=== PATIENT | male | born 1945 | race Caucasian/White ===

== ENCOUNTER 2024-04-12 14:39 | Outpatient (CLI) | payer MEDICARE, OTHER ==
[~2024-04-12 14:39] MED LIST: NO HOME MEDS
[2024-04-12 16:18] LABS: CHOL/HDL RATIO 3.8 (0.00-4.99); CHOLESTEROL 161 MG/DL (0-200); FREE T4 (FREE THYROXINE) 0.92 NG/DL (0.73-1.40); HDL CHOLESTEROL 42 MG/DL (35-60); LDL CHOLESTEROL 107 MG/DL (50-100); THYROID STIMULATING HORMONE 1.62 ulU/ml (0.34-4.50); TRIGLYCERIDES 83 MG/DL (20-135)
[2024-04-12 16:19] LABS: HEMOGLOBIN A1C 5.5 % (4.5-6.2)
[2024-04-14 11:58] LABS: % FREE PSA 26.6 % (.); PROSTATE SPECIFIC AG, SERUM 3.2 ng/mL (0.0-4.0); PSA, FREE 0.85 ng/mL
== END 2024-04-12 23:59 | disposition home or self-care (01) ==
LOC: LAB 14:39
PROVIDERS: ATTEND Family Medicine
DX: Z13.1 Encounter for screening for diabetes mellitus (principal); Z00.00 Encounter for general adult medical examination without abnormal findings; E78.2 Mixed hyperlipidemia; R35.1 Nocturia
CPT/HCPCS: 36415; 80061; 83036; 84153; 84154; 84439; 84443

== ENCOUNTER 2024-04-24 10:11 | Day surgery (SDC) | payer MEDICARE, OTHER ==
[2024-04-12 16:03] LABS: BASOPHILS # (AUTO) 0.1 X10'3 (0-0.2); BASOPHILS % (AUTO) 1.3 % (0-1); EOSINOPHILS # (AUTO) 0.2 X10'3 (0-0.9); EOSINOPHILS % (AUTO) 2.6 % (0-6); LYMPHOCYTES # (AUTO) 1.6 X10'3 (1.1-4.8); LYMPHOCYTES % (AUTO) 23.2 % (21-51); MEAN CORPUSCULAR HEMOGLOBIN 31.7 PG (27.0-31.0); MEAN CORPUSCULAR VOLUME 93.4 FL (78-98); MEAN PLATELET VOLUME 8.1 FL (7.4-10.4); MONOCYTES # (AUTO) 0.7 X10'3 (0-0.9); MONOCYTES % (AUTO) 10.3 % (2-12); NEUTROPHILS # (AUTO) 4.3 X10'3 (1.8-7.7); NEUTROPHILS % (AUTO) 62.6 % (42-75); PRE OP HEMOGLOBIN 15.6 g/dL (14.0-17.9); PRE OP PLATELET COUNT 212 X10'3 (140-440); PRE OP WHITE BLOOD COUNT 6.9 10'3 (4.8-10.8); RED BLOOD COUNT 4.92 X10'6 (4.70-6.10)
[2024-04-12 16:43] LABS: ALBUMIN/GLOBULIN RATIO 1.1 (1.1-1.5); ALKALINE PHOSPHATASE 83 IU/L (46-116); BLOOD UREA NITROGEN 14 MG/DL (7-18); BUN/CREATININE RATIO 14.6 (10.0-20.0); CALCIUM 8.6 MG/DL (8.5-10.1); CHLORIDE 105 MMOL/L (99-107); CREATININE 0.96 MG/DL (0.60-1.10); PRE OP ALT 32 U/L (30-65); PRE OP ANION GAP 11 (8-16); PRE OP AST 27 U/L (10-37); PRE OP BILIRUB, TOTAL 0.8 MG/DL (0.0-1.0); PRE OP GLUCOSE 85 MG/DL (70-104); PRE OP POTASSIUM 3.8 MMOL/L (3.4-5.1); PRE OP SODIUM 137 MMOL/L (135-145); TOTAL CARBON DIOXIDE 21.2 MMOL/L (24-32); TOTAL PROTEIN 7.6 G/DL (6.4-8.2); eGFR 76 ML/MIN
[~2024-04-24] VITALS: Ht 177.8 cm; Wt 81.7 kg
[2024-04-24] VITALS (8 sets, daily range): BP systolic 120–161; BP diastolic 70–101; PULSE 53–61; RESP 9–16; TEMP 97.1; O2SAT 94–98
[2024-04-24] MEDS: cefazolin 2gm/D5W 100mL 100 ML IV ONE (05:30)
[~2024-04-24 10:11] MED LIST changes: +LIDOcaine 2% (20mg/ml) 5ml vial ONE; +ringers solution, lacted 1,000 ML IV SCH
[2024-04-24] MEDS: famotidine 20mg tablet PO ONE (10:40)
[2024-04-24] MEDS ORDERED: labetalol 20mg/4ml (5mg/ml) syringe IV PRN (10:50)
[2024-04-24] MEDS ORDERED: ringers solution, lacted 1,000 ML IV SCH (10:50)
[2024-04-24] MEDS ORDERED: labetalol 5mg/ml 20ml inj. IV PRN (10:50)
[2024-04-24] MEDS ORDERED: morphine 2 MG/ML inj. syringe IV PRN (10:50)
[2024-04-24] MEDS ORDERED: ondansetron/PF 4mg/2ml inj IV PRN (10:50)
[2024-04-24] MEDS ORDERED: morphine 4 MG/ML inj SYRINge IV PRN (10:50)
[2024-04-24] MEDS ORDERED: BUPIVAcaine/PF 2.5mg/ml (0.25%) 10ml vial ONE (11:16)
[2024-04-24] MEDS ORDERED: fentaNYL/PF 50MCG/1 ML 2ML syringe ONE (11:47)
[2024-04-24] MEDS ORDERED: midazolam 1 mg/ML 2ml injection ONE (11:47)
[2024-04-24] MEDS ORDERED: propofol 10mg/ml 20ml vial IV ONE (11:51)
[2024-04-24] MEDS ORDERED: LIDOcaine 0.5% (5mg/ml) 50ml vial ONE (12:00)
[2024-04-24] MEDS ORDERED: ketorolac trometh. 30mg/ml inj. ONE (12:01)
[2024-04-24] MEDS: BUPIVAcaine/PF 2.5mg/ml (0.25%) 10ml vial ONE (12:08)
== END 2024-04-24 13:43 | disposition home or self-care (01) ==
LOC: PRE-OP 10:11 → PAS 13:43
PROVIDERS: ATTEND Orthopaedic Surgery Hand Surgery
DX: M72.0 Palmar fascial fibromatosis [Dupuytren] (principal); I25.2 Old myocardial infarction; M19.90 Unspecified osteoarthritis, unspecified site; Z87.891 Personal history of nicotine dependence; Z79.82 Long term (current) use of aspirin; Z79.899 Other long term (current) drug therapy; Z98.890 Other specified postprocedural states; Z82.3 Family history of stroke
CPT/HCPCS: 26123; 26125; 36415; 80053; 82948; 85025; 93005; A4215; A4618; A6222; A6402; A6449; A7000; J0690; J1885; J2001; J2250; J2704; J3010; J3490; J7030; J7120; Z7506; Z7512; Z7610